=== PATIENT | female | born 1985 | race Caucasian/White ===

== ENCOUNTER 2018-06-27 18:45 | Inpatient (IN) | payer OTHER ==
[2018-06-27] MEDS: TERBUTALINE 1 MG/ML INJ SC (19:30)
[2018-06-27] MEDS: LACTATED RINGER'S 1,000 ML IV* (19:30)
[2018-06-27 19:46] LABS: ADD MAN DIFF? NO
[2018-06-27 19:47] LABS: BASOPHILS % 0.1 % (0.0-2.0); EOSINOPHILS # 0.1 10^3/ul (0.0-0.5); EOSINOPHILS % 0.6 % (0.0-7.0); LYMPHOCYTES # 0.9 10^3/ul (0.8-2.9); LYMPHOCYTES % 8.3 % (15.0-51.0); MEAN CORPUSCULAR HEMOGLOBIN 30.7 pg (29.0-33.0); MEAN CORPUSCULAR HGB CONC 35.1 g/dl (32.0-37.0); MEAN CORPUSCULAR VOLUME 87.3 fl (82.0-101.0); MEAN PLATELET VOLUME 9.8 fl (7.4-10.4); MONOCYTE # 0.4 10^3/ul (0.3-0.9); NEUTROPHIL # 9.4 10^3/ul (1.6-7.5); NEUTROPHILS % 86.2 % (39.0-77.0); PLATELET COUNT 206 10^3/UL (140-415); RED BLOOD COUNT 4.24 10^6/ul (4.20-5.40); RED CELL DISTRIBUTION WIDTH 13.2 % (11.5-14.5)
[2018-06-27 19:47] LABS: WHITE BLOOD COUNT 10.9 10^3/ul (4.8-10.8)
[2018-06-27 20:01] LABS: ADD UMIC YES; UR ASCORBIC ACID NEGATIVE (NEGATIVE); UR BACTERIA FEW /HPF (NONE SEEN); UR BILIRUBIN (Dip) NEGATIVE (NEGATIVE); UR BLOOD (Dip) NEGATIVE (NEGATIVE); UR CLARITY CLOUDY (CLEAR); UR COLOR AMBER (YELLOW); UR GLUCOSE (Dip) NEGATIVE (NEGATIVE); UR KETONES (Dip) 2+ mg/dL (NEGATIVE); UR LEUKOCYTE ESTERASE (Dip) 2+ Leu/ul (NEGATIVE); UR MUCUS MANY /HPF (NONE SEEN); UR NITRITE (Dip) NEGATIVE (NEGATIVE); UR RBC 4 /HPF (0-5); UR SPECIFIC GRAVITY (Dip) 1.023 (1.003-1.030); UR SQUAMOUS EPITHELIAL CELL MODERATE /HPF (FEW); UR TOTAL PROTEIN (Dip) 1+ mg/dl (NEGATIVE); UR UROBILINOGEN (Dip) 2+ mg/dL (NEGATIVE); UR WBC 13 /HPF (0-5)
[2018-06-27] MEDS ORDERED: ACETAMINOPHEN 325 MG TAB PO (20:30)
[2018-06-27] MEDS: LACTATED RINGER'S 1,000 ML IV (21:11)
[2018-06-27] MEDS: MAGNESIUM SULFATE 4 GM/100 ML 100 ML IV (21:35)
[2018-06-27] MEDS: MAGNESIUM SULFATE 20 GM/500 ML 500 ML IV (22:16)
[2018-06-27] MEDS ORDERED: ONDANSETRON 4 MG INJ IV (22:30)
[2018-06-27] MEDS: BETAMET NA PHOS/AC(6 MG/ML) 5ML INJ IM (23:17)
[2018-06-28] MEDS: MAGNESIUM SULFATE 20 GM/500 ML 500 ML IV ×2 (07:19→15:50)
[2018-06-28] MEDS: LACTATED RINGER'S 1,000 ML IV ×2 (08:28→21:46)
[2018-06-28] MEDS: PRENATAL VITAMIN PO (08:28)
[2018-06-28 12:55] LABS: MAGNESIUM 5.2 mg/dl (1.7-2.5)
[2018-06-28] MEDS: NITROFURANTOIN (SR) 100 MG CAP PO (17:28)
[2018-06-28 18:23] LABS: MAGNESIUM 5.3 mg/dl (1.7-2.5)
[2018-06-28] MEDS: BETAMET NA PHOS/AC(6 MG/ML) 5ML INJ IM (23:15)
[2018-06-29] MEDS: MAGNESIUM SULFATE 20 GM/500 ML 500 ML IV (02:08)
[2018-06-29 02:11] LABS: MAGNESIUM 5.5 mg/dl (1.7-2.5)
[2018-06-29] MEDS: NITROFURANTOIN (SR) 100 MG CAP PO (09:11)
[2018-06-29] MEDS: PRENATAL VITAMIN PO (09:11)
== END 2018-06-29 19:00 | disposition home or self-care (01) | DRG 778 ==
LOC: OBT 18:45 → L-D 18:46 → OBT 20:48 → PP1 20:24
PROVIDERS: Obstetrics & Gynecology
PROC: 4A1HXCZ Monitoring of Products of Conception, Cardiac Rate, External Approach (ICD-10-PCS; principal; 2018-06-27)
DX: O60.03 Preterm labor without delivery, third trimester (principal); O23.43 Unspecified infection of urinary tract in pregnancy, third trimester; Z3A.33 33 weeks gestation of pregnancy
CPT/HCPCS: 36415; 76815; 76817; 76818; 81001; 83735; 85025; 87086; 96360; 96366; 96372

== ENCOUNTER 2018-08-12 21:16 | Inpatient (IN) | payer OTHER ==
[2018-08-12] MEDS ORDERED: LIDOCAINE 1% (MPF) 30 ML INJ INJ (22:30)
[2018-08-12] MEDS ORDERED: OXYTOCIN 30 UNITS/LR 500 ML IV (22:30)
[2018-08-12] MEDS ORDERED: METHYLERGONOVINE 0.2 MG INJ IM (22:30)
[2018-08-12] MEDS ORDERED: MISOPROSTOL 200 MCG TAB PR (22:30)
[2018-08-12] MEDS ORDERED: CARBOPROST 250 MCG INJ IM (22:30)
[2018-08-12] MEDS ORDERED: BUTORPHANOL 2 MG INJ IV (22:30)
[2018-08-12] MEDS: LACTATED RINGER'S 1,000 ML IV* ×2 (22:39→23:02)
[2018-08-12] MEDS: AMPICILLIN 2 GM/NS (PMX) 100 ML IV (23:10)
[2018-08-12 23:27] LABS: ADD MAN DIFF? NO
[2018-08-12 23:30] LABS: WHITE BLOOD COUNT 8.1 10^3/ul (4.8-10.8)
[2018-08-12 23:30] LABS: BASOPHILS % 0.2 % (0.0-2.0); EOSINOPHILS # 0.1 10^3/ul (0.0-0.5); EOSINOPHILS % 0.9 % (0.0-7.0); HEMATOCRIT 35.1 % (37.0-47.0); HEMOGLOBIN 12.1 g/dl (12.0-16.0); LYMPHOCYTES # 1.9 10^3/ul (0.8-2.9); LYMPHOCYTES % 23.6 % (15.0-51.0); MEAN CORPUSCULAR HEMOGLOBIN 30.4 pg (29.0-33.0); MEAN CORPUSCULAR HGB CONC 34.5 g/dl (32.0-37.0); MEAN CORPUSCULAR VOLUME 88.2 fl (82.0-101.0); MONOCYTE # 0.4 10^3/ul (0.3-0.9); MONOCYTES % 5.3 % (0.0-11.0); NEUTROPHIL # 5.6 10^3/ul (1.6-7.5); NEUTROPHILS % 69.1 % (39.0-77.0); PLATELET COUNT 238 10^3/UL (140-415); RED BLOOD COUNT 3.98 10^6/ul (4.20-5.40); RED CELL DISTRIBUTION WIDTH 13.5 % (11.5-14.5)
[2018-08-12 23:53] LABS: INR 0.89; PARTIAL THROMBOPLASTIN TIME 27.5 Sec (25.0-35.0); PROTIME 12.1 Sec (11.9-14.9); PT RATIO 0.9
[2018-08-13 00:20] LABS: HEPATITIS B SURFACE ANTIGEN NEGATIVE (NEGATIVE)
[2018-08-13] MEDS ORDERED: FENTAnyl 2MCG/ML-ROPIV 0.2% 100 ML (00:23)
[2018-08-13] MEDS ORDERED: NALOXONE (0.4 MG/ML) INJ IV (00:30)
[2018-08-13] MEDS ORDERED: ONDANSETRON 4 MG INJ IV ×2 (00:30→17:30)
[2018-08-13] MEDS ORDERED: DIPHENHYDRAMINE 50 MG INJ IV (00:30)
[2018-08-13] MEDS ORDERED: FENTAnyl 2MCG/ML-ROPIV 0.2% 100 ML BAG EPI (00:30)
[2018-08-13] MEDS ORDERED: EPHEDrine SULFATE 50 MG/5 ML SYG IV (00:30)
[2018-08-13] MEDS ORDERED: AMPICILLIN 1 GM/NS (PMX) 50 ML IV (02:30)
[2018-08-13] MEDS: LACTATED RINGER'S 1,000 ML IV* (03:40)
[2018-08-13] MEDS: OXYTOCIN 30 UNITS/LR 500 ML IV ×5 (04:55→17:04)
[2018-08-13] MEDS: IBUPROFEN 600 MG TAB PO ×3 (08:24→18:06)
[2018-08-13] MEDS ORDERED: MISOPROSTOL 200 MCG TAB PR (17:30)
[2018-08-13] MEDS: SENNA/DOCUSATE NA (8.6MG/50MG) TAB PO ×2 (17:30→21:29)
[2018-08-13] MEDS ORDERED: morphine 2 MG INJ IV (17:30)
[2018-08-13] MEDS ORDERED: CARBOPROST 250 MCG INJ IM (17:30)
[2018-08-13] MEDS ORDERED: ACETAMINOPHEN 325 MG TAB PO (17:30)
[2018-08-13] MEDS ORDERED: NACL 0.9% 3 ML SYG IV (17:30)
[2018-08-13] MEDS ORDERED: METHYLERGONOVINE 0.2 MG INJ IM (17:30)
[2018-08-13] MEDS ORDERED: DIPHENHYDRAMINE 25 MG CAP PO (17:30)
[2018-08-13] MEDS ORDERED: HYDROCODONE/APAP (5/325) TAB PO (17:30)
[2018-08-13] MEDS ORDERED: ZOLPIDEM 5 MG TAB PO (17:30)
[2018-08-13] MEDS ORDERED: OXYTOCIN 30 UNITS/LR 500 ML IV (17:30)
[2018-08-13 17:33] LABS: HEMOGLOBIN 11.3 g/dl (12.0-16.0)
[2018-08-13] MEDS: LANOLIN 7 GM TUBE TOP (18:06)
[2018-08-13] MEDS: WITCH HAZEL/GLYCERIN PAD PR (18:06)
[2018-08-13 20:48] LABS: RAPID PLASMA REAGIN NONREACTIVE (NR)
[2018-08-14] MEDS: IBUPROFEN 600 MG TAB PO ×5 (05:35→23:50)
[2018-08-14] MEDS: SENNA/DOCUSATE NA (8.6MG/50MG) TAB PO ×2 (09:21→20:16)
[2018-08-15] MEDS: IBUPROFEN 600 MG TAB PO ×2 (05:38→12:02)
[2018-08-15] MEDS: SENNA/DOCUSATE NA (8.6MG/50MG) TAB PO (08:30)
[2018-08-15] MEDS: WITCH HAZEL/GLYCERIN PAD PR (08:30)
[2018-08-15 08:36] LABS: ADD MAN DIFF? NO
[2018-08-15 08:51] LABS: WHITE BLOOD COUNT 6.9 10^3/ul (4.8-10.8)
[2018-08-15 08:51] LABS: BASOPHILS % 0.3 % (0.0-2.0); EOSINOPHILS # 0.1 10^3/ul (0.0-0.5); EOSINOPHILS % 1.4 % (0.0-7.0); HEMATOCRIT 31.6 % (37.0-47.0); HEMOGLOBIN 10.5 g/dl (12.0-16.0); LYMPHOCYTES # 1.5 10^3/ul (0.8-2.9); LYMPHOCYTES % 21.4 % (15.0-51.0); MEAN CORPUSCULAR HGB CONC 33.2 g/dl (32.0-37.0); MEAN CORPUSCULAR VOLUME 90.3 fl (82.0-101.0); MEAN PLATELET VOLUME 9.7 fl (7.4-10.4); MONOCYTE # 0.3 10^3/ul (0.3-0.9); NEUTROPHILS % 72.3 % (39.0-77.0); PLATELET COUNT 216 10^3/UL (140-415)
[2018-08-15] MEDS: BENZOCAINE 20% 56 ML SPRAY TOP (09:22)
== END 2018-08-15 15:55 | disposition home or self-care (01) | DRG 775 ==
LOC: PP1 08-13 17:00 → OBT 21:16 → L-D 21:16 → OBT 21:55 → L-D 21:55
PROVIDERS: Obstetrics & Gynecology
PROC: 10E0XZZ Delivery of Products of Conception, External Approach (ICD-10-PCS; principal; 2018-08-13)
DX: O80 Encounter for full-term uncomplicated delivery (principal); Z3A.39 39 weeks gestation of pregnancy; Z37.0 Single live birth
CPT/HCPCS: 62319; 85014; 85018; 85025; 85610; 85730; 86592; 86850; 86900; 86901; 87340